=== PATIENT | female | born 1950 | race Asian ===

== ENCOUNTER 2019-06-12 16:32 | Emergency (ER) | payer OTHER ==
[~2019-06-12] VITALS: Ht 162.6 cm; Wt 70.3 kg
--- NOTE | 2019-06-12 17:57 | NUR ---
PATIENT WAS SEEN BY . DC, RX AND FOLLOW UP INSTRUCTIONS GIVEN AND EXPLAINED TO PATIENT WHO STATES SHE UNDERSTANDS ALL INSTRUCTIONS
== END 2019-06-12 17:59 | disposition home or self-care (01) ==
LOC: ER 16:32
DX: J06.9 Acute upper respiratory infection, unspecified (principal); E11.9 Type 2 diabetes mellitus without complications; Z88.1 Allergy status to other antibiotic agents
CPT/HCPCS: 71045; A4663

== ENCOUNTER 2019-07-16 12:49 | Emergency (ER) | payer OTHER ==
[~2019-07-16] VITALS: Ht 165.1 cm; Wt 68.0 kg
--- NOTE | 2019-07-16 13:00 | NUR ---
Patient ambulated with stable gait. Speech is clear, speaks in complete sentences. No neuro deficits noted. Patient came for c/o cough that has not resolved even with prior medication rx. No cardiovascular distress noted, all pulses palpable. Denies any n/v/d.
[2019-07-16] MEDS ORDERED: HYDROCHLOROTHIAZIDE PO (13:01)
[2019-07-16] MEDS ORDERED: METF-494 PO (13:01)
[2019-07-16] MEDS ORDERED: ATEN50TA PO (13:01)
[2019-07-16 14:16] LABS: BASOPHILS % (AUTO) 0.6 % (0.0-2.0); EOSINOPHILS % (AUTO) 0.6 % (0.0-7.0); HEMATOCRIT 38.9 % (31.2-41.9); HEMOGLOBIN 12.9 g/dL (10.9-14.3); LYMPHOCYTES # (AUTO) 2.2 K/uL (20.0-40.0); LYMPHOCYTES % (AUTO) 34.5 % (20.5-51.5); MEAN CORPUSCULAR HEMOGLOBIN 30.4 uug (24.7-32.8); MEAN CORPUSCULAR HGB CONC 33 g/dL (32.3-35.6); MEAN CORPUSCULAR VOLUME 91.6 fL (75.5-95.3); MONOCYTES # (AUTO) 0.7 K/uL (2.0-10.0); MONOCYTES % (AUTO) 10.4 % (0.0-11.0); NEUTROPHILS # (AUTO) 3.4 K/uL (1.8-8.9); NEUTROPHILS % (AUTO) 53.9 % (38.5-71.5); PLATELET COUNT (AUTO) 85 K/uL (179-408); RED BLOOD CELL COUNT(AUTO) 4.25 MIL/uL (3.63-4.92); WHITE BLOOD COUNT (AUTO) 6.4 K/uL (3.8-11.8)
[2019-07-16 14:25] LABS: CREATININE 0.8 mg/dL (0.6-1.3); POTASSIUM 3.7 mmol/L (3.5-5.1)
[2019-07-16 14:37] LABS: BILIRUBIN,DIRECT 0.1 mg/dL (0.0-0.2); BILIRUBIN,TOTAL 0.3 mg/dL (0.2-1.0); TOTAL PROTEIN, SERUM 7.8 g/dL (6.4-8.2)
[2019-07-16] MEDS ORDERED: SWABABLE VALVE TRANSFER SET EA MC ONE (15:23)
[2019-07-16] MEDS ORDERED: IOHEXOL 300MG/ML 100 ML INFUS..BTL ONE (15:23)
[2019-07-16] MEDS ORDERED: IV NORMAL SALINE 250 ML IV ONE (15:23)
--- NOTE | 2019-07-16 15:43 | NUR ---
Patient transported to CT in stable condition.
[2019-07-16] MEDS ORDERED: IV NORMAL SALINE 500 ML BAG IV ONE (16:45)
--- NOTE | 2019-07-16 17:20 | NUR ---
Patient discharged to home in stable conditon. Written and verbal after care instructions given. Patient verbalizes understanding of instructions. Patient ambulated with stable gait.
[2019-07-16 17:56] VITALS: BP 132/76
== END 2019-07-16 17:19 | disposition home or self-care (01) ==
LOC: ER 12:49
DX: R05 Cough (principal); R59.9 Enlarged lymph nodes, unspecified; E11.9 Type 2 diabetes mellitus without complications; Z88.1 Allergy status to other antibiotic agents; Z79.899 Other long term (current) drug therapy; Z79.84 Long term (current) use of oral hypoglycemic drugs
CPT/HCPCS: 36415; 71045; 71260; 80048; 80076; 83880; 84484; 85025; 85730; 93005; 99284; Q9967; 70030-TC; A4663; J7040; J7050

== ENCOUNTER 2019-08-07 16:22 | Emergency (ER) | payer OTHER ==
[~2019-08-07] VITALS: Ht 165.1 cm; Wt 68.0 kg
[~2019-08-07 16:22] MED LIST: ATEN50TA PO; HYDROCHLOROTHIAZIDE PO; METF-494 PO
--- NOTE | 2019-08-07 17:14 | NUR ---
Patient discharged to home in stable conditon. Written and verbal after care instructions given. Patient verbalizes understanding of instructions.pt walks in steady gat. no sign of distress.breathing normally.
== END 2019-08-07 17:15 | disposition home or self-care (01) ==
LOC: ER 16:24
DX: J40 Bronchitis, not specified as acute or chronic (principal); E11.9 Type 2 diabetes mellitus without complications; I10 Essential (primary) hypertension; Z88.1 Allergy status to other antibiotic agents; Z79.899 Other long term (current) drug therapy; Z87.891 Personal history of nicotine dependence
CPT/HCPCS: 71045; A4663

== ENCOUNTER 2019-09-22 12:27 | Emergency (ER) | END 2019-09-22 14:34 | disposition home or self-care (01) | DX: J20.9 Acute bronchitis, unspecified (principal); E87.1 Hypo-osmolality and hyponatremia; E11.9 Type 2 diabetes mellitus without complications; I10 Essential (primary) hypertension; Z88.1 Allergy status to other antibiotic agents; Z79.899 Other long term (current) drug therapy ==

== ENCOUNTER 2023-02-26 16:18 | Emergency (ER) | payer OTHER ==
[~2023-02-26] VITALS: Ht 162.6 cm; Wt 68.0 kg
--- NOTE | 2023-02-26 16:29 | NUR ---
[email or web address], medical screening exam in progress
[2023-02-26] MEDS ORDERED: TYLENOL (16:35)
[2023-02-26] MEDS ORDERED: PROM5SYR PO (17:16)
[2023-02-26] MEDS ORDERED: AZIT250T PO (17:16)
[2023-02-26] MEDS ORDERED: PROM6.256 PO (17:17)
--- NOTE | 2023-02-26 17:24 | NUR ---
Patient discharged to home by Dr Mejia in stable condition with steady gait. Written and verbal after care instructions given. Patient verbalized understanding and compliance of instructions. Stressed follow up with primary doctor and weigh and charge worker or return to ER for worsening s/s.
[2023-02-26 17:29] VITALS: BP 136/80
== END 2023-02-26 17:29 | disposition home or self-care (01) ==
LOC: ER 16:18
DX: J18.9 Pneumonia, unspecified organism (principal); E11.9 Type 2 diabetes mellitus without complications; I10 Essential (primary) hypertension; E03.9 Hypothyroidism, unspecified; Z88.1 Allergy status to other antibiotic agents; Z79.2 Long term (current) use of antibiotics; Z79.899 Other long term (current) drug therapy; Z20.822 Contact with and (suspected) exposure to COVID-19
CPT/HCPCS: 71045; A4663